=== PATIENT | male | born 1955 | race Two or more races ===

== ENCOUNTER 2020-12-28 19:55 | Emergency (ER) | payer OTHER ==
[~2020-12-28] VITALS: Ht 167.6 cm; Wt 65.8 kg
[2020-12-28] MEDS ORDERED: ZANAFLEX2 M1 PO (20:05)
== END 2020-12-28 23:04 | disposition home or self-care (01) ==
LOC: ER 19:55
DX: M54.42 Lumbago with sciatica, left side (principal)

== ENCOUNTER 2021-11-25 15:33 | Emergency (ER) | payer OTHER ==
[~2021-11-25] VITALS: Ht 162.6 cm; Wt 65.3 kg
[~2021-11-25 15:33] MED LIST: ZANAFLEX2 M1 PO
== END 2021-11-25 21:16 | disposition home or self-care (01) ==
LOC: ER 15:33
DX: F19.129 Other psychoactive substance abuse with intoxication, unspecified (principal); R53.83 Other fatigue